=== PATIENT | male | born 1965 | race Caucasian/White ===

== ENCOUNTER 2017-01-28 13:55 | Emergency (ER) | payer MEDICAID ==
[2017-01-28] MEDS ORDERED: NS 1,000 ML IV ONE (14:22)
[2017-01-28] MEDS ORDERED: MAALOX/LIDO/HYOSC GI COCKTAIL 55 ML BOTTLE PO ONE (14:22)
--- NOTE | 2017-01-28 14:25 | EDPHY ---
General Narrative: CHIEF COMPLAINT: Abdominal pain, constipation then diarrhea HISTORY OF PRESENT ILLNESS: patient says that he was just released from [facility]way 2 days ago. He said for the past few months and as needed constipation and generalized abdominal pain. He said they were given Maalox and presented help. Upon being released to start taking prune juice that caused diarrhea. This stopped as of this morning. Pain is generalized and he feels it is associated with bloating. Some [id number] pain. No fever. Some chills and "feel deathly ill." no bloody stools or emesis. No cough. No shortness of breath. No headache. No other associated complaints or modifying factors. REVIEW OF SYSTEMS: Ten systems reviewed and are negative unless otherwise noted in the HPI EXAMINATION: General Appearance: Alert, no distress Also, unkempt Head: normocephalic, atraumatic Eyes: Pupils equal and round, no conjunctival pallor or injection ENT, Mouth: Mucous membranes moist. Uvula midline. No erythema or edema. Neck: Normal inspection, supple, non-tender Respiratory: Lungs are clear to auscultation . No wheezing, rhonchi or crackles. Cardiovascular: Regular rate and rhythm . No murmur. Pulses intact distally. Gastrointestinal: Abdomen is soft and Mild generalized tenderness. No point tenderness. No tympany. No rigidity. No CVA tenderness. Nonacute abdomen. Neurological: A&O, nonfocal, normal gait Strength is 5/5 in all limbs. Skin: Warm and dry, no rash Extremities: Nontender, no pedal edema Psychiatric: Mood and affect normal DIFFERENTIAL DIAGNOSES: Including but not limited to Gastroenteritis, enteritis, colitis, UTI, dehydration, constipation, diarrhea MDM: 2:20 p.m. nausea, abdominal pain, bloating and diarrhea. diarrhea has resolved and likely result of the previously was taking. His abdominal exam is benign. His history is more consistent with a viral illness than otherwise. He has a nonacute abdomen. Vital signs are stable. We will check abdominal laboratory studies and provide IV fluids and GI cocktail. He has declined any imaging of any kind, But at this time I do not feel he warrants a CT scan. 3:15 p.m. the patient is feeling much better following the IV fluids and GI cocktail. He is asking for discharge home. Laboratory studies are within normal limits. Abdominal exam remained benign. I do not feel that he warrants CT scan. Be discharged home to follow up with primary care and/or Gastroenterology for his chronic abdominal pain and nausea. He is comfortable with this plan and discharged home stable condition. ED Precautions: Worsening pain. Fever. Bloody stools. Bloody emesis. Constipation or diarrhea. SUPERVISION: This patient was independently evaluated without the aide of supervising physician. - History Smoking Status: Never smoked - Objective Vital Signs: Initial Vital Signs Temperature (C) 97.5 F 01/28/17 13:56 Heart Rate 107 H 01/28/17 13:56 Respiratory Rate 14 01/28/17 13:56 Blood Pressure 166/96 H 01/28/17 13:56 O2 Sat (%) 95 01/28/17 13:56 O2 Delivery Mode Room Air Allergies/Adverse Reactions: niacin Allergy (Verified 04/30/16 20:21) Home Medications: Medication Instructions Recorded Zyprexa 06/24/16 diphenhydrAMINE [Benadryl 25 MG 25 mg PO HS PRN #15 tab 06/24/16 (*)] Ondansetron Odt [Zofran Odt 4 mg 4 mg PO Q6 PRN #12 tab 01/28/17 (*)] Laboratory Results: Laboratory Results 01/28/17 14:30 01/28/17 14:30 01/28/17 01/28/17 14:30 14:30 WBC 10.67 10^3/uL H 10^3/uL (3.80-9.50) RBC 5.19 10^6/uL 10^6/uL (4.40-6.38) Hgb 15.5 g/dL g/dL (13.7-17.5) Hct 44.6 % % (40.0-51.0) MCV 85.9 fL fL (81.5-99.8) MCH 29.9 pg pg (27.9-34.1) MCHC 34.8 g/dL g/dL (32.4-36.7) RDW 12.1 % % (11.5-15.2) Plt Count 258 10^3/uL 10^3/uL (150-400) MPV 10.2 fL fL (8.7-11.7) Neut % (Auto) 75.7 % H % (39.3-74.2) Lymph % (Auto) 16.0 % % (15.0-45.0) [place] % (Auto) 7.3 % % (4.5-13.0) Eos % (Auto) 0.0 % L % (0.6-7.6) Baso % (Auto) 0.5 % % (0.3-1.7) Nucleat RBC Rel Count 0.0 % % (0.0-0.2) Absolute Neuts (auto) 8.08 10^3/uL H 10^3/uL (1.70-6.50) Absolute Lymphs (auto) 1.71 10^3/uL 10^3/uL (1.00-3.00) Absolute Monos (auto) 0.78 10^3/uL 10^3/uL (0.30-0.80) Absolute Eos (auto) 0.00 10^3/uL L 10^3/uL (0.03-0.40) Absolute Basos (auto) 0.05 10^3/uL 10^3/uL (0.02-0.10) Absolute Nucleated RBC 0.00 10^3/uL 10^3/uL (0-0.01) Immature Gran % 0.5 % % (0.0-1.1) Immature Gran # 0.05 10^3/uL 10^3/uL (0.00-0.10) Sodium 140 mEq/L mEq/L (134-144) Potassium 4.2 mEq/L mEq/L (3.5-5.2) Chloride 105 mEq/L mEq/L (97-110) Carbon Dioxide 21 mEq/l L mEq/l (22-31) Anion Gap 14 mEq/L mEq/L (8-16) BUN 16 mg/dL mg/dL (7-23) Creatinine 0.8 mg/dL mg/dL (0.7-1.3) Estimated GFR > 60 Glucose 104 mg/dL H mg/dL (70-100) Calcium 9.7 mg/dL mg/dL (8.5-10.4) Total Bilirubin 0.7 mg/dL mg/dL (0.1-1.4) Conjugated Bilirubin 0.5 mg/dL mg/dL (0.0-0.5) Unconjugated Bilirubin 0.2 mg/dL mg/dL (0.0-1.1) AST 25 IU/L IU/L (17-59) ALT 34 IU/L IU/L (21-72) Alkaline Phosphatase 73 IU/L IU/L (38-126) Total Protein 7.5 g/dL g/dL (6.3-8.2) Albumin 4.5 g/dL g/dL (3.5-5.0) Lipase 87.0 IU/L IU/L (23-300) Medications Given: Discontinued Medications Sodium Chloride (Ns) 1,000 mls @ 0 mls/hr IV ONCE ONE PRN Reason: Wide Open Stop: 01/28/17 14:23 Last Admin: 01/28/17 14:33 Dose: 1,000 mls Miscellaneous Medication (Gi Cocktail) 55 ml PO EDNOW ONE Stop: 01/28/17 14:23 Last Admin: 01/28/17 15:05 Dose: 55 ml Departure - Departure Disposition: Home, Routine, Self-Care Clinical Impression: Nausea Abdominal pain Qualifiers: Abdominal location: generalized Qualified Code(s): R10.84 - Generalized abdominal pain Condition: Good Instructions: Gas and Bloating (ED), Abdominal Pain (ED) Additional Instructions: Follow-up with Gastroenterology for definitive care. Return to the ER for worsening pain, fever vomiting Referrals: NONE *PRIMARY CARE P,. [Primary Care Provider] - As per Instructions Celso Vang MD [Medical Doctor] - As per Instructions Prescriptions: Ondansetron Odt [Zofran Odt 4 mg (*)] 4 mg PO Q6 PRN #12 tab PRN Reason: Nausea/Vomiting, Use 1st
[2017-01-28 14:50] LABS: % IMMATURE GRANULYOCYTES 0.5 % (0.0-1.1); ABSOLUTE IMMATURE GRANULOCYTES 0.05 10^3/uL (0.00-0.10); ADD DIFF? NO; ADD MORPH? NO; ADD SCAN? NO; ATYPICAL LYMPHOCYTE FLAG 0 (0-99); FRAGMENT RBC FLAG 0 (0-99); HEMATOCRIT 44.6 % (40.0-51.0); HEMOGLOBIN 15.5 g/dL (13.7-17.5); LEFT SHIFT FLG 0 (0-99); LIPEMIA HEMOLYSIS FLAG 90 (0-99); MEAN CELL HEMOGLOBIN 29.9 pg (27.9-34.1); MEAN CELL HEMOGLOBIN CONCENTR. 34.8 g/dL (32.4-36.7); MEAN CELL VOLUME 85.9 fL (81.5-99.8); MEAN PLATELET VOLUME 10.2 fL (8.7-11.7); PLATELET CLUMPS FLAG 0 (0-99); PLATELET COUNT 258 10^3/uL (150-400); RED BLOOD CELL COUNT 5.19 10^6/uL (4.40-6.38); RED CELL DISTRIBUTION WIDTH 12.1 % (11.5-15.2)
[2017-01-28 15:06] VITALS: BP 129/90; PULSE 102; RESP 16; TEMP 98.4; O2SAT 92
[2017-01-28 15:16] LABS: ALANINE AMINOTRANSFERASE 34 IU/L (21-72); ALBUMIN 4.5 g/dL (3.5-5.0); ALKALINE PHOSPHATASE 73 IU/L (38-126); ANION GAP 14 mEq/L (8-16); ASPARTATE AMINOTRANSFERASE 25 IU/L (17-59); BILIRUBIN,TOTAL 0.7 mg/dL (0.1-1.4); BILIRUBIN-CONJUGATED 0.5 mg/dL (0.0-0.5); BILIRUBIN-UNCONJUGATED 0.2 mg/dL (0.0-1.1); CALCIUM 9.7 mg/dL (8.5-10.4); CARBON DIOXIDE 21 mEq/l (22-31); CHLORIDE 105 mEq/L (97-110); CREATININE 0.8 mg/dL (0.7-1.3); GLOMERULAR FILTRATION RATE > 60; GLUCOSE 104 mg/dL (70-100); POTASSIUM 4.2 mEq/L (3.5-5.2); SODIUM 140 mEq/L (134-144); TOTAL PROTEIN 7.5 g/dL (6.3-8.2)
== END 2017-01-28 15:45 | disposition home or self-care (01) ==
DX: R10.84 Generalized abdominal pain (principal); R11.0 Nausea

== ENCOUNTER 2017-02-12 10:14 | Emergency (ER) | payer MEDICAID ==
--- NOTE | 2017-02-12 10:32 | EDPHY ---
H & P Time Seen by Provider: 02/12/17 10:20 HPI/ROS: CHIEF COMPLAINT: I just do not have a place to go HISTORY OF PRESENT ILLNESS: This 51-year-old man presents with difficulty sleeping. He got out of longterm on January 25. He used to live with his mother and [facility] until she a couple of years ago. He presents with frustration and increasing anxiety and insomnia. He has been homeless and living on the street and trying to sleep during the day and up at night so he does not get awakened while he is sleeping. He has had depression but denies suicidal ideation. He is states that he is worsening anxiety and insomnia which is not helped by alcohol. This morning he woke up and he was shivering so presents to the ER for evaluation. REVIEW OF SYSTEMS: Eye: no change in vision ENT: no sore throat Cardiac: no chest pain or syncope Pulmonary: no cough or SOB Abdomen: no vomiting, diarrhea, abdominal pain Musculoskeletal: no back pain Skin: no rash Neuro: no headache Constitutional: no fever : no urinary symptoms A comprehensive 10 point review of systems is otherwise negative aside from elements mentioned in the history of present illness. PAST MEDICAL HISTORY: Lacerations to right hand and arm which had to be sutured , hypertension. No surgery Social history: Recent alcohol, no tobacco smoking or drugs, does chew tobacco. General Appearance: Alert and conversant, cooperative. Eyes: No scleral icterus. ENT, Mouth: Normal mucous membranes. Respiratory: Normal respiratory effort, breath sounds equal, lungs are clear to auscultation. Cardiovascular: Regular rate and rhythm. Gastrointestinal: Abdomen is soft and non tender. Neurological: Alert and oriented x3. Normally conversant. Face symmetric, normal movement and sensation in all extremities. Skin: Warm and dry, no rashes. Musculoskeletal: No peripheral edema and no joint swelling. Psychiatric: Moderately anxious, not suicidal or homicidal, not hallucinating. Emergency Department course/MDM: Patient's temperature is 36.7degrees. My clinical impression that his primary medical problem is insomnia and anxiety related to homelessness. He tells me he has been prescribed Zyprexa in the past for sleep but denies any previous psychiatric diagnosis other than depression and anxiety. I do not think he has an acute emergent medical condition, and will be stable for discharge. Case management to see regarding follow-up. Smoking Status: Never smoked Constitutional: Initial Vital Signs Heart Rate 105 H 02/12/17 10:15 Respiratory Rate 16 02/12/17 10:15 Blood Pressure 154/99 H 02/12/17 10:15 O2 Sat (%) 97 02/12/17 10:15 O2 Delivery Mode Room Air Allergies/Adverse Reactions: niacin Allergy (Verified 04/30/16 20:21) Home Medications: Medication Instructions Recorded Zyprexa 06/24/16 diphenhydrAMINE [Benadryl 25 MG 25 mg PO HS PRN #15 tab 06/24/16 (*)] MDM/Departure - Depart Disposition: Home, Routine, Self-Care Clinical Impression: Anxiety Insomnia Qualifiers: Insomnia type: unspecified Qualified Code(s): G47.00 - Insomnia, unspecified Condition: Good Instructions: Insomnia (ED), Anxiety (ED) Referrals: [facility],. [Clinic] - As per Instructions
[2017-02-12 11:19] VITALS: BP 130/78; PULSE 70; RESP 14; TEMP 98.4; O2SAT 94
== END 2017-02-12 11:18 | disposition home or self-care (01) ==
DX: F41.9 Anxiety disorder, unspecified (principal); G47.00 Insomnia, unspecified; I10 Essential (primary) hypertension

== ENCOUNTER 2017-02-12 16:59 | Emergency (ER) | payer MEDICAID ==
--- NOTE | 2017-02-12 17:08 | EDPHY ---
H & P - Medical/Surgical History Hx Asthma: No Hx Chronic Respiratory Disease: No Hx Diabetes: No Hx Cardiac Disease: No Hx Renal Disease: No Hx Cirrhosis: No Hx Alcoholism: No Hx HIV/AIDS: No Hx Splenectomy or Spleen Trauma: No Other PMH: R hand/arm ortho surgeries, HEADACHES/ NECK INJURY, HTN - Social History Smoking Status: Never smoked Time Seen by Provider: 02/12/17 17:03 HPI/ROS: CHIEF COMPLAINT: Suspected alcohol intoxication HISTORY OF PRESENT ILLNESS: 51 year old homeless male male arrives via ambulance after [place] [employer] [place], minimally arousable, admitted to alcohol use. There were initial reports of cocaine use however patient denies cocaine or other coingestion. Denies: Chest pain, dyspnea, back pain, headache, neuro deficits. he is on [facility] hold PRIMARY CARE PROVIDER: none REVIEW OF SYSTEMS: A ten point review of systems was performed and is negative with the exception of the items mentioned in the HPI PAST MEDICAL & SURGICAL HISTORY: No pertinent medical or surgical history SOCIAL HISTORY: Positive alcohol use admits to 1 pt of whiskey PHYSICAL EXAM (Prior to examination, patient consented to physical exam, hands were washed and my usual and customary physical exam procedures followed) 1) GENERAL: poorly kept, alert oriented x4, smells of alcohol Appears to be in no acute distress. 2) HEAD: Normocephalic, atraumatic 3) HEENT: Pupils equal, round, reactive to light bilaterally. Sclera anicteric. 4) NECK: Full range of motion, no meningeal signs. 5) LUNGS: Clear auscultation bilaterally, no wheezes, no rhonchi, no retractions. 6) HEART: Regular rate and rhythm, no murmur, no heave, no gallop. 7) ABDOMEN: No guarding, no rebound, no focal tenderness, 8) MUSCULOSKELETAL: No peripheral edema or discoloration. 9) BACK: no visual or palpable abnormality. 10) SKIN: No rash, no petechiae. 11) Psychiatric: Patient is oriented X 3, there is no agitation. DIFFERENTIAL DIAGNOSIS: [no particular include but limited to trauma, polysubstance abuse, alcohol abuse (Janes Willett) Constitutional: Initial Vital Signs Temperature (C) 36.9 C 02/12/17 17:07 Heart Rate 110 H 02/12/17 17:07 Respiratory Rate 16 02/12/17 17:07 Blood Pressure 120/85 H 02/12/17 17:07 O2 Sat (%) 90 L 02/12/17 17:07 O2 Delivery Mode Room Air Allergies/Adverse Reactions: niacin Allergy (Verified 04/30/16 20:21) Home Medications: Medication Instructions Recorded Zyprexa 06/24/16 diphenhydrAMINE [Benadryl 25 MG 25 mg PO HS PRN #15 tab 06/24/16 (*)] Medical Decision Making ED Course/Re-evaluation: 5:10 p.m.: Old medical records reviewed. Patient was in the ER earlier with complaints of not having any place to go 6:13 p.m. patient up in a walking around the emergency department stable steady gait clear speech pattern oriented person place time events. Plan will be discharged to the [facility] (Janes Willett) I did not see this patient while he was in the emergency department. However his care was discussed with the PA while the patient was in the department. I agree with treatment plan and management (Magdiel Persaud) - Data Points Laboratory Results: 02/12/17 17:04 Ethyl Alcohol 341 mg/dL H mg/dL (0-10) Departure - Departure Disposition: Home, Routine, Self-Care Clinical Impression: Alcohol intoxication Qualifiers: Complication of substance-induced condition: uncomplicated Qualified Code(s): F10.120 - Alcohol abuse with intoxication, uncomplicated Condition: Good Instructions: Alcohol Intoxication (ED) Referrals: [facility],. [Clinic] - 1-2 days without fail
[2017-02-12 17:09] VITALS: RESP 16; O2SAT 90
[2017-02-12 18:12] LABS: ETHANOL SERUM 341 mg/dL (0-10)
[2017-02-12 19:15] VITALS: BP 115/75; PULSE 105; TEMP 98.2
== END 2017-02-12 19:15 | disposition home or self-care (01) ==
LOC: EDUNIT#
DX: F10.120 Alcohol abuse with intoxication, uncomplicated (principal); I10 Essential (primary) hypertension
CPT/HCPCS: G0480

== ENCOUNTER 2017-03-02 12:41 | Emergency (ER) | payer MEDICAID ==
[2017-03-02 13:21] VITALS: TEMP 98.4; O2SAT 94
[2017-03-02] MEDS ORDERED: ACETAMINOPHEN 500 MG TAB PO ONE (14:35)
[2017-03-02 14:40] VITALS: BP 143/103; PULSE 103; RESP 16
--- NOTE | 2017-03-02 15:25 | EDPHY ---
H & P Stated Complaint: URI, Cough, Sore Throat Time Seen by Provider: 03/02/17 13:28 HPI/ROS: CHIEF COMPLAINT: URI HISTORY OF PRESENT ILLNESS: 51-year-old male presents emergency department complaining of nasal congestion, cough, sore throat x1 week. Patient reports subjective fevers and chills, he reports he was recently released from shelter. He denies nausea, vomiting or diarrhea, urinary urgency, frequency or dysuria. Patient is also requesting STD testing as he has a new sexual relationship and his partner is requesting he get tested. Patient has no STD complaints. He denies chest pain or shortness of breath. REVIEW OF SYSTEMS: A comprehensive 10 point review of systems is otherwise negative aside from elements mentioned in the history of present illness. Source: Patient Exam Limitations: No limitations - Personal History Current Tetanus Diphtheria and Acellular Pertussis (TDAP): Yes - Medical/Surgical History Hx Asthma: No Hx Chronic Respiratory Disease: No Hx Diabetes: No Hx Cardiac Disease: No Hx Renal Disease: No Hx Cirrhosis: No Hx Alcoholism: No Hx HIV/AIDS: No Hx Splenectomy or Spleen Trauma: No Other PMH: R hand/arm ortho surgeries, HEADACHES/ NECK INJURY, HTN - Social History Smoking Status: Never smoked - Physical Exam Exam: General: Alert, nontoxic. ENT: Tympanic membranes clear, external auditory canal, external ear and surrounding soft tissue including over the mastoid unremarkable. Nasopharynx is injected, there is no rhinorrhea. Oropharynx with erythema, no edema. There is no exudate. No tonsillar hypertrophy. No asymmetry. The uvula is midline. No elevation of tongue. There is no hoarseness. No drooling, patient has good control of their oral secretions. No trismus. No stridor. Cardiac: Regular rate and rhythm. Respiratory: Lungs clear to auscultation bilaterally. Neurological: no meningismus. Skin: No rashes. Constitutional: Initial Vital Signs Temperature (C) 36.9 C 03/02/17 13:19 Heart Rate 105 H 03/02/17 13:19 Respiratory Rate 18 03/02/17 13:19 Blood Pressure 134/102 H 03/02/17 13:19 O2 Sat (%) 94 03/02/17 13:19 O2 Delivery Mode Room Air Allergies/Adverse Reactions: niacin Allergy (Verified 06/11/16 20:21) Home Medications: Medication Instructions Recorded Zyprexa 06/24/16 diphenhydrAMINE [Benadryl 25 MG 25 mg PO HS PRN #15 tab 06/24/16 (*)] AZITHROMYCIN [Z-PACK] 250 mg PO DAILY #6 tab 03/02/17 Albuterol Sulfate [Proair 2 puffs IH Q4-6PRN PRN #1 inh 03/02/17 Respiclick] Fluticasone Nasal [Flonase Nasal 1 sprays NASAL DAILY #1 mdi 03/02/17 Conde (RX)] Medical Decision Making ED Course/Re-evaluation: 51-year-old with URI symptoms x1 week and recent release from shelter. Room air oxygen saturation is 96%, lungs to auscultation. Patient will be treated with a Z-Edi, Flonase and an albuterol inhaler. He is requesting STD testing because he states his partner is requesting this. He has no STD symptoms or complaints. The patient has been given [facility] for follow-up and STD testing. He has been given strict return precautions for any worsening symptoms. Differential Diagnosis: Diagnoses considered but not limited to viral pharyngitis, strep pharyngitis, sinusitis, bronchitis, pneumonia, viral URI. - Data Points Laboratory Results: 03/02/17 03/02/17 03/02/17 Unknown 13:20 13:20 Influenza Typ A,B (DFA) NEGATIVE FOR FLU (NEGATIVE) Group A Strep Screen NEGATIVE (NEGATIVE) Group A Strep DNA Pending Medications Given: Discontinued Medications Acetaminophen (Tylenol) 1,000 mg PO EDNOW ONE Stop: 03/02/17 14:36 Last Admin: 03/02/17 14:40 Dose: 1,000 mg Departure - Departure Disposition: Home, Routine, Self-Care Clinical Impression: URI, acute Condition: Good Instructions: Upper Respiratory Infection (ED), Acute Bronchitis (ED) Additional Instructions: Take 650 mg of Tylenol every 8 hours with food, take 600 mg of ibuprofen every 8 hours with food. Rest, drink plenty of fluids. Use a saline nasal rinse, humidifier at night, hot steam showers. Take antibiotics as prescribed, use 2 puffs of albuterol inhaler every 4-6 hours as needed for cough, use 1 spray of Flonase in each nostril daily for 7 days. Follow[facility]up at [facility] for your STD testing. Return to the ED for difficulty breathing, chest pain, other concerns. Referrals: [facility],. [Clinic] - As per Instructions Prescriptions: Albuterol Sulfate [Proair Respiclick] 2 puffs IH Q4-6PRN PRN #1 inh PRN Reason: Cough, Moderate AZITHROMYCIN [Z-PACK] 250 mg PO DAILY #6 tab Fluticasone Nasal [Flonase Nasal Conde (RX)] 1 sprays NASAL DAILY #1 mdi
== END 2017-03-02 15:44 | disposition home or self-care (01) ==
DX: J06.9 Acute upper respiratory infection, unspecified (principal); I10 Essential (primary) hypertension

== ENCOUNTER 2017-03-07 10:03 | Emergency (ER) | payer MEDICAID ==
[2017-03-07 10:18] VITALS: BP 136/97; PULSE 94; RESP 20; TEMP 97.5; O2SAT 92
--- NOTE | 2017-03-07 11:40 | EDPHY ---
H & P Time Seen by Provider: 03/07/17 11:00 HPI/ROS: CHIEF COMPLAINT: Dizzy, lightheaded HISTORY OF PRESENT ILLNESS: 51-year-old male presents to the emergency department complaining of feeling dizzy and lightheaded. The patient has been seen 5 times in the emergency department in the last 1 month. Most recently the patient was seen on the 02 of March and diagnosed with bronchitis. He was started on Zithromax and given albuterol inhaler. He was taking the Zithromax as prescribed but then he lost the last 2 pills. He came back to the emergency department for prescription refill and apparently after taking an additional 500 mg this morning he was feeling dizzy and anxious. He was concerned that he was having a medication reaction. He no longer feels dizzy. He does feel anxious. He denies chest pain or difficulty breathing. Denies headache. Denies any reported trauma. REVIEW OF SYSTEMS: Constitutional: No fever, no chills. Eyes: No double or blurry vision. ENT: No sore throat. Respiratory: No cough, no shortness of breath. Cardiac: No chest pain. Gastrointestinal: No abdominal pain, vomiting or diarrhea. Genitourinary: No dysuria. Musculoskeletal: No neck or back pain. Skin: No rashes. Neurological: No headache. Past Medical/Surgical History: Substance abuse, hypertension, chronic neck pain Social History: Homeless Smoking Status: Never smoked Physical Exam: General Appearance: Alert, no distress. Vital signs are stable. Normal gait. Eyes: Pupils equal and round. Extraocular motions are all intact. No nystagmus. ENT: Mouth: Mucous membranes moist. Respiratory: No wheezing, rhonchi, or rales, lungs are clear to auscultation. Cardiovascular: Regular rate and rhythm. Gastrointestinal: Abdomen is soft and nontender, no masses, no rebound or guarding, bowel sounds normal. Neurological: Alert and oriented x 3, cranial nerves II through XII grossly intact Skin: Warm and dry, no rashes. Musculoskeletal: Nontender to palpate along the cervical, thoracic or lumbar spine. Neck is supple. Extremities: Full range of motion and no peripheral edema. Psychiatric: Patient is oriented X 3, there is no agitation. Constitutional: Initial Vital Signs Temperature (C) 36.4 C 03/07/17 10:15 Heart Rate 94 03/07/17 10:15 Respiratory Rate 20 04/18/17 10:15 Blood Pressure 136/97 H 03/07/17 10:15 O2 Sat (%) 92 03/07/17 10:15 O2 Delivery Mode Room Air Allergies/Adverse Reactions: niacin Allergy (Verified 03/07/17 10:14) Home Medications: Medication Instructions Recorded AZITHROMYCIN [Z-PACK] 250 mg PO DAILY #6 tab 03/02/17 Lisinopril 03/07/17 Medical Decision Making ED Course/Re-evaluation: 51-year-old male presents to the emergency department feeling dizzy and lightheaded. The patient feels that his symptoms resolved. He was concerned that he was having allergic reaction. He was reassured that his vital signs are normal. He has a normal gait. He is hungry. He is comfortable being discharged. He was encouraged to follow up with [facility] if he had any other problems. Differential Diagnosis: Dizziness including but not limited to peripheral and central causes of vertigo , orthostatic causes including dehydration, and blood loss. Departure - Departure Disposition: Home, Routine, Self-Care Clinical Impression: Bronchitis, Dizziness Condition: Good Instructions: Acute Bronchitis (ED), Dizziness (ED) Additional Instructions: Continue albuterol inhaler for the next 2-3 days to help with her cough and breathing. You have completed a course of the antibiotics and do not need any further antibiotics. Follow-up with [facility]. Make sure that you stay well-hydrated. Return if he developed pain in her chest, difficulty breathing, recurring dizziness, or if you feel worse in any way. Referrals: [facility] [Other] - 2-3 days, call for appt.
== END 2017-03-07 11:49 | disposition home or self-care (01) ==
DX: R42 Dizziness and giddiness (principal); J40 Bronchitis, not specified as acute or chronic; I10 Essential (primary) hypertension